=== PATIENT | female | born 1965 | race Two or more races ===

== ENCOUNTER → 2019-07-16 | Day surgery (SDC) | payer BC ==
[2019-07-13 14:46] LABS: Basophils # (auto) 0.1 uL; Basophils % (auto) 1.1 % (0.0-2.0); Eosinophils # (auto) 0.2 uL; Hematocrit 39.4 % (36.0-46.0); Hemoglobin 13.1 g/dL (12.2-16.2); Lymphocytes # (auto) 3.1 uL; Lymphocytes % (auto) 49.2 % (10.0-50.0); Mean Corpuscular Hemoglobin 30.6 pg (28.0-32.0); Mean Corpuscular Hgb Conc. 33.4 g/dL (32.0-36.0); Mean Corpuscular Volume 91.5 fL (80.0-100.0); Monocytes # (auto) 0.6 uL; Monocytes % (auto) 9.9 % (0.0-12.0); Neutrophils # (auto) 2.3 uL; Neutrophils % (auto) 36.8 % (37.0-80.0); Nucleated Red Blood Cells % 0.1 %; Platelet Count (auto) 283 10^3/uL (140-450); White Blood Cell 6.4 10^3/uL (4.4-10.8)
[2019-07-13 15:03] LABS: Partial Thromboplastin Time 24.9 sec (23.64-32.05)
[~2019-07-16] VITALS: Ht 152.4 cm; Wt 62.1 kg
[~2019-07-16] MED LIST: ALBUAER3 IN; FLUMAZENIL 0.1 MG/ML INJ 10ML MDV IV ONE; NALOXONE HCL 0.4 MG/ML VIAL ONE; SODIUM CHLORIDE LOCK 10 ML ONE; diphenhdrAMINE HCL 50 MG/1 ML VL ONE
[2019-07-16] MEDS: fentaNYL CITRATE 100 MCG/2 ML VL ONE ×2 (09:13→09:18)
[2019-07-16] MEDS: MIDAZOLAM HCL 5 MG/ML-1ML VIAL ONE ×2 (09:13→09:18)
[2019-07-16 10:00] VITALS: BP 135/85
== END | disposition home or self-care (01) ==
LOC: GI 07:43
PROVIDERS: ATTEND Internal Medicine Gastroenterology
DX: Z12.11 Encounter for screening for malignant neoplasm of colon (principal); J45.909 Unspecified asthma, uncomplicated; Z90.710 Acquired absence of both cervix and uterus; Z98.890 Other specified postprocedural states
CPT/HCPCS: 36415; 45378; 85025; 85610; 85730; J1200; J2250; J3010; J7030; 99152